=== PATIENT | female | born 1990 | race Caucasian/White ===

== ENCOUNTER 2024-05-12 23:29 | Observation (INO) | payer MEDICAID ==
[~2024-05-12] VITALS: Ht 165.1 cm; Wt 77.1 kg
[2024-05-12 23:36] VITALS: BP 127/70; PULSE 67; RESP 20
[2024-05-13 00:16] LABS: APPEARANCE,URINE CLOUDY (CLEAR); BILIRUBIN,URINE NEGATIVE (NEGATIVE); COLOR,URINE YELLOW (YELLOW); GLUCOSE, URINE (UA) 150 mg/dL (NEGATIVE); KETONES,URINE 10 mg/dL (NEGATIVE); LEUKOCYTE ESTERASE ,URINE 250 Leu/uL (NEGATIVE); NITRATE,URINE NEGATIVE (NEGATIVE); OCCULT BLOOD,URINE NEGATIVE (NEGATIVE); PROTEIN,URINE 70 mg/dL (NEGATIVE); UROBILINOGEN,URINE 3 mg/dL (0.2-1.0)
[2024-05-13 00:29] LABS: ADD UA MICROSCOPIC YES
[2024-05-13 00:33] LABS: BACTERIA,URINE RARE /HPF (None Seen); CALCIUM OXALATE CRYSTALS,UR MANY /LPF (None Seen); MUCUS,URINE MOD LPF (None Seen); SQUAMOUS EPITHELIAL CELL,UR FEW /HPF (0-2); WBC,URINE 26-50 /HPF (0-1)
[2024-05-13 00:35] VITALS: TEMP 97.5
[2024-05-13] MEDS: acetaMINOPHEN 500 MG TABLET PO ONE (00:35)
[2024-05-13] MEDS: LACTATED RINGERS 1000ML IV ONE (00:37)
[2024-05-13 01:33] LABS: AMPHET/METH SCREEN,URINE NEGATIVE (NEGATIVE); BARBITURATE SCREEN, URINE NEGATIVE (NEGATIVE); BENZODIAZEPINES SCREEN,URINE NEGATIVE (NEGATIVE); CANNABINOID SCREEN,URINE NEGATIVE (NEGATIVE); COCAINE SCREEN,URINE NEGATIVE (NEGATIVE); OPIATE SCREEN,URINE NEGATIVE (NEGATIVE); PHENCYCLIDINE SCREEN,URINE NEGATIVE (NEGATIVE)
[2024-05-13 02:00] LABS: HEMATOCRIT 29.4 % (36-48); MEAN CORPUSCULAR HEMOGLOBIN 29.3 pg (27.0-33.0); MEAN CORPUSCULAR VOLUME 88.8 fL (79-99); RED BLOOD CELL COUNT(AUTO) 3.31 MIL/uL (4.00-5.50); RED CELL DISTRIBUTION WIDTH 13.5 % (11.0-15.5); WHITE BLOOD COUNT (AUTO) 9.1 K/uL (4.8-10.8)
== END 2024-05-13 02:35 | disposition home or self-care (01) ==
LOC: EDH 23:29 → LDH 23:30
PROVIDERS: ADMIT Internal Medicine; ATTEND Internal Medicine
DX: O21.2 Late vomiting of pregnancy (principal); O26.892 Other specified pregnancy related conditions, second trimester; R51.9 Headache, unspecified; R55 Syncope and collapse; R53.1 Weakness; Z3A.23 23 weeks gestation of pregnancy; Z88.0 Allergy status to penicillin; Z79.899 Other long term (current) drug therapy
CPT/HCPCS: 80305; 87086; 81001; 96361; 59025; 96360; 85027; 36415; G0378 ×3; G0379; J7120